=== PATIENT | female | born 1940 | race African-American/Black ===

== ENCOUNTER 2017-09-05 11:30 | Emergency (ER) | payer MEDICARE, BC ==
[2017-09-05 12:18] LABS: ABSOLUTE LYMPHOCYTES (AUTO) 4.3 10^3/uL (0.5-4.7); ABSOLUTE MONOCYTES (AUTO) 0.5 10^3/uL (0.1-1.4); BASOPHILS % (AUTO) 0.2 % (0-2); EOSINOPHILS % (AUTO) 0.3 % (0-6); HEMATOCRIT 40.5 % (36.0-47.0); HEMOGLOBIN 12.9 g/dL (12.0-15.5); LYMPHOCYTES % (AUTO) 33.5 % (13-45); MEAN CORPUSCULAR HEMOGLOBIN 28.1 pg (27.0-33.4); MEAN CORPUSCULAR HGB CONC 31.9 g/dL (32.0-36.0); MEAN CORPUSCULAR VOLUME 88 fl (80-97); MONOCYTES % (AUTO) 3.7 % (3-13); PLATELET COUNT 295 10^3/uL (150-450); RED CELL DISTRIBUTION WIDTH 14.8 % (11.5-14.0); SEGMENTED NEUTROPHILS % (AUTO) 62.3 % (42-78); TOTAL CELLS COUNTED % (AUTO) 100 %; WHITE BLOOD COUNT 12.8 10^3/uL (4.0-10.5)
--- NOTE | 2017-09-05 12:20 | ER Document Report ---
ED Syncope and Near Syncope - General Chief Complaint: Syncope Stated Complaint: WEAKNESS Time Seen by Provider: 09/05/17 11:37 Mode of Arrival: Stretcher Information source: Patient, Relative TRAVEL OUTSIDE OF THE [place] IN LAST 30 DAYS: No - HPI Patient complains to provider of: Fainting Episode witnessed (by whom): No Symptoms prior to episode: None Position/Activity at time of episode: Sitting Quality of pain: No pain Context: Lost consciousness Injury location: None Current symptoms: Weakness Similar symptoms previously: No Recently seen / treated by doctor: No Notes: Patient is a 77-year-old female who presents to the emergency room today after syncopal episode while she was having a bowel movement on the commode, patient reports no symptoms prior to the episode, states she was having a loose bowel movement and did not have to bear down at the time, she states she passed out for just a few seconds and then came to without sustaining any injury, following the syncopal episode she complains of weakness, denies headache, no vision changes, no nausea or vomiting, no fever chills, no recent illness or injury, denies seeing any blood in her stools, no chest pain or shortness of breath, no history of similar symptoms previously - Related Data Allergies/Adverse Reactions: No Known Allergies Allergy (Verified 03/14/13 08:49) Past Medical History - General Information source: Patient - Social History Smoking Status: Never Smoker Chew tobacco use (# tins/day): No Frequency of alcohol use: None Drug Abuse: None Family History: Reviewed & Not Pertinent Patient has suicidal ideation: No Patient has homicidal ideation: No - Past Medical History Cardiac Medical History: Reports: Hx Coronary Artery Disease, Hx Hypercholesterolemia, Hx Hypertension Denies: Hx Heart Attack Pulmonary Medical History: Denies: Hx Asthma, Hx Bronchitis, Hx COPD, Hx Pneumonia Neurological Medical History: Denies: Hx Cerebrovascular Accident, Hx Seizures Renal/ Medical History: Denies: Hx Peritoneal Dialysis GI Medical History: Reports: Hx Gastroesophageal Reflux Disease Musculoskeltal Medical History: Reports Hx Arthritis Past Surgical History: Reports: Hx Cholecystectomy, Hx Hysterectomy. Denies: Hx Pacemaker - Immunizations Hx Diphtheria, Pertussis, Tetanus Vaccination: No Review of Systems - Review of Systems Constitutional: Weakness EENT: No symptoms reported Cardiovascular: Syncope Respiratory: No symptoms reported Gastrointestinal: No symptoms reported Genitourinary: No symptoms reported Female Genitourinary: No symptoms reported Musculoskeletal: No symptoms reported Skin: No symptoms reported Hematologic/Lymphatic: No symptoms reported Neurological/Psychological: No symptoms reported -: Yes All other systems reviewed and negative Physical Exam - Vital signs Vitals: Temp 97.4 F 09/05/17 11:40 Interpretation: Normal - General General appearance: Appears well, Alert - HEENT Head: Normocephalic, Atraumatic Eyes: Normal Pupils: PERRL - Respiratory Respiratory status: No respiratory distress Chest status: Nontender Breath sounds: Normal Chest palpation: Normal - Cardiovascular Rhythm: Regular Heart sounds: Normal auscultation Murmur: No - Abdominal Inspection: Normal Distension: No distension Bowel sounds: Normal Tenderness: Nontender Organomegaly: No organomegaly - Back Back: Normal, Nontender - Extremities General upper extremity: Normal inspection, Nontender, Normal color, Normal ROM , Normal temperature General lower extremity: Normal inspection, Nontender, Normal color, Normal ROM , Normal temperature, Normal weight bearing. No: Olamide's sign - Neurological Neuro grossly intact: Yes Cognition: Normal Orientation: AAOx4 [place] Coma Scale Eye Opening: Spontaneous [place] Coma Scale Verbal: Oriented [place] Coma Scale Motor: Obeys Commands [place] Coma Scale Total: 15 Speech: Normal Motor strength normal: LUE, RUE, LLE, RLE Sensory: Normal - Psychological Associated symptoms: Normal affect, Normal mood - Skin Skin Temperature: Warm Skin Moisture: Dry Skin Color: Pale Course - Re-evaluation Re-evalutation: 09/05/17 15:48 Patient reports feeling much better, was able to ambulate without difficulty or return of symptoms, lab findings were discussed at bedside which are unremarkable except for mild leukocytosis and evidence of a urinary tract infection, patient will be started on antibiotics for this, advised to follow- up with her primary care provider in the next 2-3 days or return if symptoms worsen, symptoms likely vasovagal syncope as patient was having a bowel movement at time of her syncopal episode, patient and family members at bedside acknowledge understanding and agreement with this plan - Vital Signs Vital signs: Temp Pulse Resp BP Pulse Ox 97.4 F 81 16 125/67 98 09/05/17 11:40 09/05/17 12:47 09/05/17 13:01 09/05/17 13:01 09/05/17 13:01 - Laboratory Result Diagrams: 09/05/17 11:07 04/10/18 12:55 Laboratory results interpreted by me: 09/05/17 09/05/17 09/05/17 11:07 12:40 12:55 WBC 12.8 H MCHC 31.9 L RDW 14.8 H Carbon Dioxide 31 H BUN 22 H Glucose 126 H Urine Protein 30 H Urine Blood SMALL H Ur Leukocyte Esterase SMALL H Urine Ascorbic Acid 40 H - EKG Interpretation by Me EKG shows normal: Sinus rhythm Rate: Normal Rhythm: NSR Discharge - Discharge Clinical Impression: Syncope Qualifiers: Syncope type: vasovagal syncope Qualified Code(s): R55 - Syncope and collapse Urinary tract infection Qualifiers: Urinary tract infection type: site unspecified Hematuria presence: without hematuria Qualified Code(s): N39.0 - Urinary tract infection, site not specified Condition: Stable Disposition: HOME, SELF-CARE Instructions: Urinary Tract Infection ([facility]), Nitrofurantoin ([facility]), Syncopal Episode ([facility]) Additional Instructions: Follow up with your primary care provider in one to 2 days. Return to the emergency room immediately if symptoms worsen or any additional concerns. Prescriptions: Nitrofurantoin/Nitrofuran Mac [Macrobid 100 mg Capsule] 100 mg PO BID #20 capsule Referrals: STEFFANY OKEEFE MD [Primary Care Provider] - Follow up as needed
--- NOTE | 2017-09-05 13:03 | EKG REPORT ---
SEVERITY:- OTHERWISE NORMAL ECG - SINUS RHYTHM BORDERLINE LEFT AXIS DEVIATION : Confirmed by: Bola Padilla MD 05-Sep-2017 13:02:35
--- NOTE | 2017-09-05 13:03 | EKG REPORT ---
SEVERITY:- BORDERLINE ECG - SINUS ARRHYTHMIA, RATE 54-81 BORDERLINE LEFT AXIS DEVIATION CONSIDER OLD ANTEROSEPTAL ID : Confirmed by: Bola Padilla MD 05-Sep-2017 13:02:18
[2017-09-05 13:52] LABS: ALANINE AMINOTRANSFERASE 27 U/L (9-52); ALBUMIN 4.2 g/dL (3.5-5.0); ALKALINE PHOSPHATASE 79 U/L (38-126); ANION GAP 8 (5-19); ASPARTATE AMINO TRANSFERASE 33 U/L (14-36); BILIRUBIN,DIRECT 0.3 mg/dL (0.0-0.4); BILIRUBIN,TOTAL 0.3 mg/dL (0.2-1.3); BLOOD UREA NITROGEN 22 mg/dL (7-20); CALCIUM 9.6 mg/dL (8.4-10.2); CARBON DIOXIDE 31 mmol/L (22-30); CHLORIDE 102 mmol/L (98-107); CREATINE KINASE 59 U/L (30-135); GLUCOSE 126 mg/dL (75-110); POTASSIUM 4.1 mmol/L (3.6-5.0); SODIUM 141.4 mmol/L (137-145); TOTAL PROTEIN 7.6 g/dL (6.3-8.2)
[2017-09-05 14:00] LABS: APPEARANCE,URINE CLOUDY; BILIRUBIN,URINE NEGATIVE (NEGATIVE); GLUCOSE, URINE NEGATIVE (NEGATIVE); KETONES,URINE NEGATIVE (NEGATIVE); LEUKOCYTE ESTERASE,URINE SMALL (NEGATIVE); NITRITE,URINE NEGATIVE (NEGATIVE); PROTEIN,URINE 30 mg/dL (NEGATIVE); URINE SPECIFIC GRAVITY 1.028; UROBILINOGEN,URINE NEGATIVE mg/dL (<2.0)
[2017-09-05 14:01] LABS: COLOR,URINE YELLOW
[2017-09-05 14:20] LABS: CREATINE KINASE MB 0.56 ng/mL (<4.55)
[2017-09-05 14:22] LABS: TROPONIN I < 0.012 ng/mL
[2017-09-05 16:12] VITALS: BP 117/69
== END 2017-09-05 16:12 | disposition home or self-care (01) ==
LOC: ER 11:30
DX: R55 Syncope and collapse (principal); N39.0 Urinary tract infection, site not specified; R53.1 Weakness; I25.10 Atherosclerotic heart disease of native coronary artery without angina pectoris; E78.00 Pure hypercholesterolemia, unspecified; I10 Essential (primary) hypertension; Z90.49 Acquired absence of other specified parts of digestive tract; Z90.710 Acquired absence of both cervix and uterus
CPT/HCPCS: 36415; 80053; 81001; 82550; 82553; 84484; 85025; 93005; 93010; 99284

== ENCOUNTER 2017-09-05 20:58 | Inpatient (IN) | payer MEDICARE, BC ==
[2017-09-05] MEDS ORDERED: ONDANSETRON HCL INJ/PF 4 MG/2 ML SDV IV ONE (21:20)
[2017-09-05] MEDS ORDERED: NORMAL SALINE 1000 ML 1,000 ML IV ONE (21:20)
--- NOTE | 2017-09-05 21:24 | ER Document Report ---
ED Syncope and Near Syncope - General Chief Complaint: Syncope Stated Complaint: DIARRHEA Time Seen by Provider: 09/05/17 21:20 Notes: History of present illness-77 years old pleasant female, had a syncopal episode prior to coming. The second 1 she hit her head on the sink and sustained a laceration over the left forehead. She did not completely go down she went down on her knee. The one before that was on the bed. She was seen in the ER early this morning for nausea vomiting and diarrhea. She states after she went back she has multiple episodes of loose stools. She is on hypertensive medication which she took this morning. Currently has no dizziness headache. Denies any pain over the neck denies any pain over the thoracolumbar region. Denies any chest pain shortness of breath. Denies any history of palpitation. Denies any abdominal pain. REVIEW OF SYSTEMS: CONSTITUTIONAL : Denies fever, chills, or sweats. Denies recent illness. EENT: Denies eye, ear, throat, or mouth pain or symptoms. Denies nasal or sinus congestion or discharge. Denies throat, tongue, or mouth swelling or difficulty swallowing. CARDIOVASCULAR: Denies chest pain. Denies palpitations or racing or irregular heart beat. Denies ankle edema. RESPIRATORY: Denies cough, cold, or chest congestion. Denies shortness of breath, difficulty breathing, or wheezing. GASTROINTESTINAL: Denies abdominal pain or distention. Denies nausea, vomiting , or diarrhea. Denies blood in vomitus, stools, or per rectum. Denies black, tarry stools. Denies constipation. GENITOURINARY: Denies difficulty urinating, painful urination, burning, frequency, blood in urine, or discharge. FEMALE GENITOURINARY: Denies vaginal bleeding, heavy or abnormal periods, irregular periods. Denies vaginal discharge or odor. MUSCULOSKELETAL: Denies back or neck pain or stiffness. Denies joint pain or swelling. SKIN: Denies rash, lesions or sores. HEMATOLOGIC : Denies easy bruising or bleeding. LYMPHATIC: Denies swollen, enlarged glands. NEUROLOGICAL: Denies confusion or altered mental status. Denies passing out or loss of consciousness. Denies dizziness or lightheadedness. Denies headache. Denies weakness or paralysis or loss of use of either side. Denies problems with gait or speech. Denies sensory loss, numbness, or tingling. Denies seizures. PSYCHIATRIC: Denies anxiety or stress. Denies depression, suicidal ideation, or homicidal ideation. ALL OTHER SYSTEMS REVIEWED AND NEGATIVE. PHYSICAL EXAMINATION: GENERAL: Well-appearing, well-nourished and in no acute distress. HEAD: Atraumatic, normocephalic. 3 cm linear left forehead laceration noted EYES: Pupils equal round and reactive to light, extraocular movements intact, conjunctiva are normal. ENT: Nares patent, oropharynx clear without exudates. Moist mucous membranes. NECK: Normal range of motion, supple without lymphadenopathy. Supple no cervical spinal process tenderness noted. Able to flex extend abduct abduct within normal range. LUNGS: Breath sounds clear to auscultation bilaterally and equal. No wheezes rales or rhonchi. HEART: Regular rate and rhythm without murmurs ABDOMEN: Soft, nontender, nondistended abdomen. No guarding, no rebound. No masses appreciated. Female : deferred Musculoskeletal: Normal range of motion, no pitting or edema. No cyanosis. NEUROLOGICAL: Cranial nerves grossly intact. Normal speech, normal gait. Normal sensory, motor exams PSYCH: Normal mood, normal affect. SKIN: Warm, Dry, normal turgor, no rashes or lesions noted. Examination of the thoracolumbar spine: No tenderness noted over the spinal processes or paraspinal muscles. Dictation was performed using [employer] voice recognition software TRAVEL OUTSIDE OF THE [place] IN LAST 30 DAYS: No - HPI Patient complains to provider of: Fainting Episode witnessed (by whom): Yes Symptoms prior to episode: Dizziness. No: None, Abdominal pain, Back pain, Chest pain, Chills, Diarrhea, Fever, Headache, Hyperventilation, Lightheaded, Nausea/vomiting, Palpitations, Racing heart, Short of breath, Sweaty, Visual disturbance, Other Position/Activity at time of episode: Standing Quality of pain: denies: No pain, Achy, Burning, Cramping, Dull, Fullness, Pressure, Sharp, Stabbing, Throbbing, Other Context: denies: Almost passed out, Became unresponsive, Breathing shallow/ stopped, Collapsed, Confused after event, [place] faint, Incontinent of stool, Incontinent of urine, Lost consciousness, Lost pulse, Low blood sugar, , Recent immobilization, Recent seizures, Recent travel, Seizure activity observed, Other Seizure activity observed: Generalized Injury location: No: None, Abdomen, Back, Chest, Face, Head, Mouth, Neck, Tongue , LUE, LLE, RUE, RLE Current symptoms: denies: None/feels back to normal, Abdominal pain, Arm pain, Back pain, Breathing difficulty, Chest pain, Chills, Diarrhea, Dizziness, Fever , Headache, Lightheaded, Nausea, Neck pain, Shoulder pain, Short of breath, Sweaty, Vomiting, Weakness, Other - Related Data Allergies/Adverse Reactions: No Known Allergies Allergy (Verified 03/14/13 08:49) Past Medical History - Social History Smoking Status: Never Smoker Chew tobacco use (# tins/day): No Smoking Education Provided: No Frequency of alcohol use: None Drug Abuse: None Lives with: Family Family History: Reviewed & Not Pertinent - Past Medical History Cardiac Medical History: Reports: Hx Coronary Artery Disease, Hx Hypercholesterolemia, Hx Hypertension Denies: Hx Heart Attack Pulmonary Medical History: Denies: Hx Asthma, Hx Bronchitis, Hx COPD, Hx Pneumonia Neurological Medical History: Denies: Hx Cerebrovascular Accident, Hx Seizures Renal/ Medical History: Denies: Hx Peritoneal Dialysis GI Medical History: Reports: Hx Gastroesophageal Reflux Disease Musculoskeltal Medical History: Reports Hx Arthritis Past Surgical History: Reports: Hx Cholecystectomy, Hx Hysterectomy. Denies: Hx Pacemaker - Immunizations Hx Diphtheria, Pertussis, Tetanus Vaccination: No Review of Systems - Review of Systems Notes: As per history of complain Constitutional: denies: No symptoms reported, See HPI, Chills, Diaphoresis, Fever, Malaise, Weakness, Other, Weight gain, Weight loss, Recent illness EENT: denies: No symptoms reported, See HPI, Eye pain, Eye discharge, Blurred vision, Tearing, Double vision, Ear pain, Ear discharge, Nose pain, Nose congestion, Nose discharge, Sinus pressure, Sinus discharge, Throat pain, Difficulty swallowing, Throat swelling, Mouth pain, Mouth swelling, Dental problem, Vertigo, Other Cardiovascular: denies: No symptoms reported, See HPI, Chest pain, Palpitations , Heart racing, Orthopnea, Dyspnea, Syncope, Dizziness, Lightheaded, Edema, Other, Paroxysmal Nocturnal Dysp Respiratory: denies: No symptoms reported, See HPI, Cough, Hurts to breathe, Hemoptysis, Short of breath, Sputum, Stridor, Wheezing, Other Gastrointestinal: Diarrhea Female Genitourinary: denies: No symptoms reported, See HPI, Last menstrual period, , Post menopausal, Heavy/abnormal periods, Irregular period, Vaginal bleeding, Vaginal discharge, Vaginal odor, Painful intercourse, Other Musculoskeletal: denies: No symptoms reported, See HPI, Back pain, Gout, Joint pain, Joint swelling, Muscle pain, Muscle stiffness, Neck pain, Deformity, Leg swelling, Ankle swelling, Other Physical Exam - Vital signs Vitals: Pulse Ox 98 09/05/17 20:59 Course - Re-evaluation Re-evalutation: 09/06/17 00:52 Given IV fluid discussed with Dr. Guerrero, currently being admitted - Vital Signs Vital signs: Temp Pulse Resp BP Pulse Ox 98.0 F 103 H 18 131/67 H 97 09/05/17 21:02 09/05/17 21:02 09/05/17 21:02 09/05/17 21:02 09/05/17 21:02 - Laboratory Result Diagrams: 09/05/17 21:35 09/05/17 21:35 Laboratory results interpreted by me: 09/05/17 09/05/17 21:35 21:35 WBC 11.4 H RDW 14.6 H Seg Neuts % (Manual) 92 H Lymphocytes % (Manual) 4 L Abs Neuts (Manual) 10.5 H BUN 29 H Est GFR (Non-Af Amer) 57 L Glucose 154 H - Diagnostic Test Radiology reviewed: Reports reviewed - CT of the head reported by radiologist as unremarkable Procedures - Laceration/Wound Repair Left Face Time completed: 11:00 Wound length (cm): 3 Wound's Depth, Shape: Superficial, Linear Laceration pre-procedure: Betadine prep applied Wound explored: No foreign body removed Wound Repaired With: Dermabond Post-procedure NV exam normal: Yes Complications: No Discharge - Discharge Clinical Impression: Dehydration, Syncope and collapse Forehead laceration Qualifiers: Encounter type: initial encounter Qualified Code(s): S01.81XA - Laceration without foreign body of other part of head, initial encounter Condition: Fair Disposition: ADMITTED OBSERVATION Admitting Provider: Cesar Unit Admitted: Telemetry
[2017-09-05 21:49] LABS: HEMATOCRIT 38.9 % (36.0-47.0); HEMOGLOBIN 12.5 g/dL (12.0-15.5); MEAN CORPUSCULAR HEMOGLOBIN 28.2 pg (27.0-33.4); MEAN CORPUSCULAR HGB CONC 32.2 g/dL (32.0-36.0); MEAN CORPUSCULAR VOLUME 88 fl (80-97); PLATELET COUNT 267 10^3/uL (150-450); RED BLOOD COUNT 4.44 10^6/uL (3.72-5.28); RED CELL DISTRIBUTION WIDTH 14.6 % (11.5-14.0); WHITE BLOOD COUNT 11.4 10^3/uL (4.0-10.5)
[2017-09-05 22:09] LABS: ABSOLUTE LYMPHOCYTES# (MANUAL) 0.5 10^3/uL (0.5-4.7); ABSOLUTE MONOCYTES # (MANUAL) 0.5 10^3/uL (0.1-1.4); ABSOLUTE NEUTROPHILS# (MANUAL) 10.5 10^3/uL (1.7-8.2); BASOPHILS % (MANUAL) 0 % (0-2); EOSINOPHILS % (MANUAL) 0 % (0-6); LYMPHOCYTES % (MANUAL) 4 % (13-45); MONOCYTES % (MANUAL) 4 % (3-13); SEGMENTED NEUTROPHILS % (MAN) 92 % (42-78); TOTAL CELLS COUNTED 100
[2017-09-05 22:10] LABS: ALANINE AMINOTRANSFERASE 44 U/L (9-52); ALBUMIN 4.3 g/dL (3.5-5.0); ALKALINE PHOSPHATASE 79 U/L (38-126); ANION GAP 12 (5-19); ANISOCYTOSIS SLIGHT; ASPARTATE AMINO TRANSFERASE 34 U/L (14-36); BILIRUBIN,DIRECT 0.1 mg/dL (0.0-0.4); BILIRUBIN,TOTAL 0.4 mg/dL (0.2-1.3); BLOOD UREA NITROGEN 29 mg/dL (7-20); CALCIUM 9.9 mg/dL (8.4-10.2); CARBON DIOXIDE 26 mmol/L (22-30); CHLORIDE 103 mmol/L (98-107); GLUCOSE 154 mg/dL (75-110); PLATELET COMMENT ADEQUATE; TOXIC GRANULATION SLIGHT
--- NOTE | 2017-09-05 22:30 | RADIOLOGY REPORT (SQ) ---
EXAM DESCRIPTION: CT HEAD WITHOUT COMPLETED DATE/TIME: 09/05/2017 10:20 pm REASON FOR STUDY: Head injury COMPARISON: 05/26/2015. TECHNIQUE: Axial images acquired through the brain without intravenous contrast. Images reviewed wi th bone, brain and subdural windows. Additional sagittal and coronal reconstructions were generated. Images stored on PACS. All CT scanners at this facility use dose modulation, iterative reconstruction, and/or weight based d osing when appropriate to reduce radiation dose to as low as reasonably achievable (ALARA). [facility]: Dose Right [facility]: CareDose [facility]: Dose Right [facility]: Teradose 4D [facility]: Smart Opara RADIATION DOSE: CT Rad equipment meets quality standard of care and radiation dose reduction techniq ues were employed. CTDIvol: 53.2 mGy. DLP: 1097 mGy-cm. mGy. LIMITATIONS: None. FINDINGS: VENTRICLES: Normal size and contour. CEREBRUM: No masses. No hemorrhage. No midline shift. No evidence for acute infarction. Normal gra y/white matter differentiation. No areas of low density in the white matter. CEREBELLUM: No masses. No hemorrhage. No alteration of density. No evidence for acute infarction. EXTRAAXIAL SPACES: No fluid collections. No masses. ORBITS AND GLOBE: No intra- or extraconal masses. Normal contour of globe without masses. CALVARIUM: No fracture. PARANASAL SINUSES: No fluid or mucosal thickening. SOFT TISSUES: No mass or hematoma. OTHER: No other significant finding. IMPRESSION: NORMAL BRAIN CT WITHOUT CONTRAST. EVIDENCE OF ACUTE STROKE: NO. COMMENT: Quality ID # [id number]: Final reports with documentation of one or more dose reduction techniques (e.g., Automated exposure control, adjustment of the mA and/or kV according to patient size, use of iterative reconstruction technique) TECHNICAL DOCUMENTATION: JOB ID: [id number] [employer]- All Rights Reserved Reading location - IP/workstation name: [email or web address]
[2017-09-06] MEDS: NORMAL SALINE 1000 ML 1,000 ML IV PRN ×2 (00:33→13:59)
[2017-09-06 08:12] LABS: CREATINE KINASE MB 0.83 ng/mL (<4.55)
[2017-09-06 08:16] LABS: TROPONIN I < 0.012 ng/mL
[2017-09-06 14:37] LABS: CREATINE KINASE MB 1.99 ng/mL (<4.55)
[2017-09-06 14:43] LABS: TROPONIN I < 0.012 ng/mL
--- NOTE | 2017-09-06 18:06 | PDOC H&P ---
History of Present Illness Admission Date/PCP: 09/06/17 01:06 STEFFANY OKEEFE MD History of Present Illness: KEVEN CASTELAN is a 77 year old female,She has a history of hypertension, she had episode of profuse diarrhea with vomiting there was associated hypotension, she had episode of loss of consciousness, she came to the emergency room twice , initially she was seen for the acute diarrhea and vomiting, she returned again to the emergency room for evaluation of loss of consoiuoness and laceration of the forehead.The feces is negative for Clostridium difficile toxin, the last time she was in the emergency room which was <24 hours ago she was diagnosed with urinary tract infection. Past Medical History Cardiac Medical History: Reports: Hyperlipidema GI Medical History: Reports: Gastroesophageal Reflux Disease Musculoskeltal Medical History: Reports: Arthritis Psychiatric Medical History: Reports: Depression Hematology: Denies: Anemia Past Surgical History Past Surgical History: Reports: Cholecystectomy, Hysterectomy Denies: Pacemaker Social History Lives with: Family Smoking Status: Never Smoker Frequency of Alcohol Use: None Hx Recreational Drug Use: No Drugs: None Hx Prescription Drug Abuse: No Family History Family History: Reviewed & Not Pertinent Parental Family History Reviewed: Yes Children Family History Reviewed: Yes Sibling(s) Family History Reviewed.: Yes Medication/Allergy Home Medications: Aspirin [Ecotrin 81 mg EC Tablet] 81 mg PO DAILY 09/06/17 Calcium Carb/D3/Magnesium/Zinc [Rei Mag Zinc + D3 Tablet] 1 tab PO DAILY Cyanocobalamin (Vitamin B-12) [B-12] 500 mcg PO DAILY 09/06/17 Fish Oil/Dha/Epa [Fish Oil 1,200 mg Fish Oil] 1,200 mg PO DAILY 09/06/17 Multivit-Min/Iron/Folic/Lutein [Centrum Silver Women Tablet] 1 each PO DAILY 04/15 Omeprazole 40 mg PO DAILY 09/06/17 Valsartan/Hydrochlorothiazide [Diovan Hct 160-25 mg Tablet] 1 tab PO DAILY 09/06 Allergies/Adverse Reactions: No Known Allergies Allergy (Verified 03/14/13 08:49) Review of Systems Constitutional: ABSENT: chills, fever(s), headache(s), weight gain, weight loss Eyes: ABSENT: visual disturbances Ears: ABSENT: hearing changes Cardiovascular: ABSENT: chest pain, dyspnea on exertion, edema, orthropnea, palpitations Respiratory: ABSENT: cough, hemoptysis Gastrointestinal: PRESENT: nausea, vomiting Genitourinary: ABSENT: dysuria, hematuria Musculoskeletal: ABSENT: joint swelling Integumentary: ABSENT: rash, wounds Neurological: PRESENT: dizziness. ABSENT: abnormal gait, abnormal speech, confusion, focal weakness Psychiatric: ABSENT: anxiety, depression, homidical ideation, suicidal ideation Endocrine: ABSENT: cold intolerance, heat intolerance, menstrual abnormalities, polydipsia, polyuria Hematologic/Lymphatic: ABSENT: easy bleeding, easy bruising, lymphadenopathy Physical Exam Vital Signs: Temp Pulse Resp BP Pulse Ox 99.1 F 82 12 118/67 100 09/06/17 15:52 09/06/17 15:52 09/06/17 15:52 09/06/17 15:52 09/06/17 15:52 Intake & Output 09/05/17 09/06/17 09/07/17 06:59 06:59 06:59 Intake Total 80 355 Output Total 0 Balance 80 355 General appearance: PRESENT: no acute distress, well-developed, well-nourished Head exam: PRESENT: atraumatic, normocephalic Eye exam: PRESENT: conjunctiva pink, EOMI, PERRLA Ear exam: PRESENT: normal external ear exam Mouth exam: PRESENT: dry mucosa Neck exam: PRESENT: full ROM Respiratory exam: PRESENT: clear to auscultation arcelia Cardiovascular exam: PRESENT: RRR, +S1, +S2 Pulses: PRESENT: normal dorsalis pedis pul, +2 pedal pulses bilateral Vascular exam: PRESENT: normal capillary refill GI/Abdominal exam: PRESENT: normal bowel sounds, soft Rectal exam: PRESENT: deferred Neurological exam: PRESENT: alert, awake, oriented to person, oriented to place , oriented to time, oriented to situation, CN II-XII grossly intact Psychiatric exam: PRESENT: appropriate affect, normal mood Skin exam: PRESENT: dry Results Laboratory Results: 09/06/17 09/06/17 09/06/17 07:36 07:36 13:55 Creatine Kinase 107 CK-MB (CK-2) 0.83 1.99 Troponin I < 0.012 < 0.012 09/06/17 13:55 Creatine Kinase 173 H CK-MB (CK-2) Troponin I Impressions: Head CT 09/05/17 21:21 IMPRESSION: NORMAL BRAIN CT WITHOUT CONTRAST. EVIDENCE OF ACUTE STROKE: NO. Assessment & Plan - Diagnosis (1) Acute gastroenteritis Is this a current diagnosis for this admission?: Yes Plan: There is probably viral gastroenteritis, stool negative for C. difficile, continue hydration (2) Syncope and collapse Is this a current diagnosis for this admission?: Yes Plan: The syncope is most likely from volume loss
[2017-09-06 19:27] LABS: CREATINE KINASE MB 3.29 ng/mL (<4.55)
[2017-09-06 19:32] LABS: TROPONIN I < 0.012 ng/mL
[2017-09-07] MEDS: LANSOPRAZOLE 30 MG TAB.RAP.DR PO SCH (05:09)
[2017-09-07] MEDS: NORMAL SALINE 1000 ML 1,000 ML IV PRN (05:10)
[2017-09-07] MEDS: CALCIUM CARBONATE 250 MG/VITAMIN D3 125 UNIT TABLET PO SCH (09:43)
[2017-09-07] MEDS: VALSARTAN 160 MG TABLET PO SCH (09:43)
[2017-09-07] MEDS: CYANOCOBALAMIN (VITAMIN B-12) 1,000 MCG TABLET PO SCH (09:44)
[2017-09-07] MEDS: HYDROCHLOROTHIAZIDE 25 MG TABLET PO SCH (09:44)
[2017-09-07] MEDS: MULTIVITAMIN TABLET PO SCH (09:44)
[2017-09-07] MEDS: ASPIRIN 81 MG TABLET, ENT COATED PO SCH (09:45)
[2017-09-07] MEDS: OMEGA-3 ACID ETHYL ESTERS 1 GM CAPSULE PO SCH (09:45)
[2017-09-07] MEDS ORDERED: CALCIUM CARB PO SCH (10:00)
[2017-09-07] MEDS ORDERED: (PENDING PHARMACY ID) (Fish Oil/Dha/Epa [Fish Oil 1,200 Mg Fish Oil] 1,200 MG) PO SCH (10:00)
[2017-09-07] MEDS ORDERED: (PENDING PHARMACY ID) (Cyanocobalamin (Vitamin B-12) [B-12] 500 MCG) PO SCH (10:00)
[2017-09-07] MEDS ORDERED: (PENDING PHARMACY ID) (Multivit-Min/Iron/Folic/Lutein [Centrum Silver Women Tablet] 1 EACH PO SCH (10:00)
[2017-09-07] MEDS ORDERED: ZINC PO SCH (10:00)
[2017-09-07] MEDS ORDERED: (PENDING PHARMACY ID) (Valsartan/Hydrochlorothiazide [Diovan Hct 160-25 Mg Tablet] 1 TAB) PO SCH (10:00)
[2017-09-07] MEDS ORDERED: D3 PO SCH (10:00)
[2017-09-07] MEDS ORDERED: MAGNESIUM PO SCH (10:00)
[2017-09-07] MEDS ORDERED: RIFAXIMIN 550 MG TABLET PO ONE (20:00)
--- NOTE | 2017-09-07 20:26 | PDOC PROGRESS REPORT ---
Subjective Progress Note for:: 09/07/17 Subjective:: Patient was admitted for the management of acute gastroenteritis, she has ongoing diarrhea, the nurses stated that last night she had episode of transient loss of consciousness when she was transferring from the bed to the chair, she was admitted for observation but she presently continued to require IV fluid hydration Reason For Visit: DEHYDRATION Physical Exam Vital Signs: Temp Pulse Resp BP Pulse Ox 98.4 F 84 16 109/52 L 96 09/07/17 15:29 09/07/17 19:00 09/07/17 15:29 09/07/17 15:29 09/07/17 15:29 Intake & Output 09/06/17 09/07/17 09/08/17 06:59 06:59 06:59 Intake Total 80 2319 1006 Output Total 0 Balance 80 2319 1006 Weight 69.4 kg General appearance: PRESENT: no acute distress Eye exam: PRESENT: PERRLA Respiratory exam: PRESENT: clear to auscultation arcelia Cardiovascular exam: PRESENT: +S1, +S2 GI/Abdominal exam: PRESENT: soft Neurological exam: PRESENT: alert Results Laboratory Results: 09/06/17 09/06/17 09/06/17 07:36 07:36 13:55 Creatine Kinase 107 CK-MB (CK-2) 0.83 1.99 Troponin I < 0.012 < 0.012 09/06/17 09/06/17 09/06/17 13:55 18:44 18:44 Creatine Kinase 173 H 299 H CK-MB (CK-2) 3.29 Troponin I < 0.012 Impressions: Head CT 09/05/17 21:21 IMPRESSION: NORMAL BRAIN CT WITHOUT CONTRAST. EVIDENCE OF ACUTE STROKE: NO. Assessment & Plan - Diagnosis (1) Acute gastroenteritis Is this a current diagnosis for this admission?: Yes Plan: Continue IV fluid therap,yStart treatment with xifaximin (2) Syncope and collapse Is this a current diagnosis for this admission?: Yes
[2017-09-08] MEDS: LANSOPRAZOLE 30 MG TAB.RAP.DR PO SCH (05:10)
[2017-09-08] MEDS: CALCIUM CARBONATE 250 MG/VITAMIN D3 125 UNIT TABLET PO SCH (10:19)
[2017-09-08] MEDS: ASPIRIN 81 MG TABLET, ENT COATED PO SCH (10:19)
[2017-09-08] MEDS: MULTIVITAMIN TABLET PO SCH (10:19)
[2017-09-08] MEDS: OMEGA-3 ACID ETHYL ESTERS 1 GM CAPSULE PO SCH (10:20)
[2017-09-08] MEDS: VALSARTAN 160 MG TABLET PO SCH (10:20)
[2017-09-08] MEDS: CYANOCOBALAMIN (VITAMIN B-12) 1,000 MCG TABLET PO SCH (10:20)
[2017-09-08] MEDS: RIFAXIMIN 550 MG TABLET PO SCH ×2 (10:20→17:51)
[2017-09-08] MEDS: HYDROCHLOROTHIAZIDE 25 MG TABLET PO SCH (10:20)
[2017-09-08] MEDS: NORMAL SALINE 1000 ML 1,000 ML IV PRN (16:59)
--- NOTE | 2017-09-08 21:38 | PDOC PROGRESS REPORT ---
Subjective Progress Note for:: 09/08/17 Subjective:: Patient was admitted for the management of diarrhea, still profuse, she was started on rifaxmin antibiotic yesterday Reason For Visit: DEHYDRATION, SYNCOPE Physical Exam Vital Signs: Temp Pulse Resp BP Pulse Ox 99.1 F 86 20 128/55 H 97 09/08/17 19:50 09/08/17 20:50 09/08/17 19:50 09/08/17 19:50 09/08/17 19:50 Intake & Output 09/07/17 09/08/17 09/09/17 06:59 06:59 06:59 Intake Total 2318 2001 136 Output Total 0 1 Balance 2318 2001 136 Weight 69.4 kg General appearance: PRESENT: no acute distress Eye exam: PRESENT: PERRLA Respiratory exam: PRESENT: clear to auscultation arcelia Cardiovascular exam: PRESENT: +S1, +S2 GI/Abdominal exam: PRESENT: soft Neurological exam: PRESENT: alert Results Laboratory Results: 09/06/17 09/06/17 09/06/17 07:36 07:36 13:55 Creatine Kinase 107 CK-MB (CK-2) 0.83 1.99 Troponin I < 0.012 < 0.012 09/06/17 09/06/17 09/06/17 13:55 18:44 18:44 Creatine Kinase 173 H 299 H CK-MB (CK-2) 3.29 Troponin I < 0.012 Impressions: Head CT 09/05/17 21:21 IMPRESSION: NORMAL BRAIN CT WITHOUT CONTRAST. EVIDENCE OF ACUTE STROKE: NO. Assessment & Plan - Diagnosis (1) Acute gastroenteritis Is this a current diagnosis for this admission?: Yes (2) Syncope and collapse Is this a current diagnosis for this admission?: Yes
[2017-09-09] MEDS: LANSOPRAZOLE 30 MG TAB.RAP.DR PO SCH (05:22)
[2017-09-09] MEDS: NORMAL SALINE 1000 ML 1,000 ML IV PRN (05:22)
[2017-09-09] MEDS: ASPIRIN 81 MG TABLET, ENT COATED PO SCH (09:23)
[2017-09-09] MEDS: OMEGA-3 ACID ETHYL ESTERS 1 GM CAPSULE PO SCH (09:24)
[2017-09-09] MEDS: RIFAXIMIN 550 MG TABLET PO SCH ×2 (09:24→17:01)
[2017-09-09] MEDS: CALCIUM CARBONATE 250 MG/VITAMIN D3 125 UNIT TABLET PO SCH (09:24)
[2017-09-09] MEDS: CYANOCOBALAMIN (VITAMIN B-12) 1,000 MCG TABLET PO SCH (09:24)
[2017-09-09] MEDS: HYDROCHLOROTHIAZIDE 25 MG TABLET PO SCH (09:24)
[2017-09-09] MEDS: VALSARTAN 160 MG TABLET PO SCH (09:25)
[2017-09-09] MEDS: MULTIVITAMIN TABLET PO SCH (09:25)
[2017-09-09 14:08] LABS: ABSOLUTE LYMPHOCYTES (AUTO) 2.2 10^3/uL (0.5-4.7); ABSOLUTE MONOCYTES (AUTO) 0.4 10^3/uL (0.1-1.4); ABSOLUTE NEUT (AUTO) 5.2 10^3/uL (1.7-8.2); BASOPHILS % (AUTO) 0.3 % (0-2); EOSINOPHILS % (AUTO) 0.6 % (0-6); HEMATOCRIT 32.9 % (36.0-47.0); HEMOGLOBIN 10.9 g/dL (12.0-15.5); LYMPHOCYTES % (AUTO) 28.2 % (13-45); MEAN CORPUSCULAR HEMOGLOBIN 28.7 pg (27.0-33.4); MEAN CORPUSCULAR HGB CONC 33.3 g/dL (32.0-36.0); MEAN CORPUSCULAR VOLUME 86 fl (80-97); MONOCYTES % (AUTO) 5.1 % (3-13); PLATELET COUNT 227 10^3/uL (150-450); RED BLOOD COUNT 3.82 10^6/uL (3.72-5.28); RED CELL DISTRIBUTION WIDTH 14.2 % (11.5-14.0); SEGMENTED NEUTROPHILS % (AUTO) 65.8 % (42-78); TOTAL CELLS COUNTED % (AUTO) 100 %; WHITE BLOOD COUNT 7.8 10^3/uL (4.0-10.5)
[2017-09-09 14:26] LABS: ALANINE AMINOTRANSFERASE 91 U/L (9-52); ALBUMIN 3.5 g/dL (3.5-5.0); ALKALINE PHOSPHATASE 76 U/L (38-126); ANION GAP 9 (5-19); ASPARTATE AMINO TRANSFERASE 56 U/L (14-36); BILIRUBIN,DIRECT 0.1 mg/dL (0.0-0.4); BILIRUBIN,TOTAL 0.2 mg/dL (0.2-1.3); BLOOD UREA NITROGEN 7 mg/dL (7-20); CALCIUM 9.2 mg/dL (8.4-10.2); CARBON DIOXIDE 35 mmol/L (22-30); CHLORIDE 99 mmol/L (98-107); GLUCOSE 87 mg/dL (75-110); SODIUM 142.7 mmol/L (137-145)
[2017-09-09 14:28] LABS: POTASSIUM 2.4 mmol/L (3.6-5.0)
[2017-09-09] MEDS: POTASSI CL 20 MEQ/50 ML RIDER 20 MEQ/50 ML RTUPB IV SCH ×2 (15:20→16:56)
--- NOTE | 2017-09-09 15:25 | PDOC PROGRESS REPORT ---
Subjective Progress Note for:: 09/09/17 Subjective:: She has hypokalemia from today's blood work due to diarrhea Reason For Visit: DEHYDRATION, SYNCOPE Physical Exam Vital Signs: Temp Pulse Resp BP Pulse Ox 99.3 F 74 15 119/51 L 99 09/09/17 11:57 09/09/17 14:00 09/09/17 11:57 09/09/17 11:57 09/09/17 11:57 Intake & Output 09/08/17 09/09/17 09/10/17 06:59 06:59 06:59 Intake Total 2001 2156 118 Output Total 0 1 Balance 2001 2155 118 Weight 70.2 kg General appearance: PRESENT: no acute distress, well-developed, well-nourished Head exam: PRESENT: atraumatic, normocephalic Eye exam: PRESENT: conjunctiva pink, EOMI, PERRLA. ABSENT: scleral icterus Ear exam: PRESENT: normal external ear exam Mouth exam: PRESENT: moist, tongue midline Neck exam: PRESENT: full ROM Respiratory exam: PRESENT: clear to auscultation arcelia Cardiovascular exam: PRESENT: RRR, +S1, +S2 Pulses: PRESENT: normal dorsalis pedis pul, +2 pedal pulses bilateral Vascular exam: PRESENT: normal capillary refill GI/Abdominal exam: PRESENT: normal bowel sounds, soft Rectal exam: PRESENT: deferred Neurological exam: PRESENT: alert Psychiatric exam: PRESENT: appropriate affect, normal mood Skin exam: PRESENT: dry, intact, warm Results Laboratory Results: 09/09/17 13:56 09/09/17 13:56 09/09/17 09/09/17 13:56 13:56 WBC 7.8 RBC 3.82 Hgb 10.9 L Hct 32.9 L MCV 86 MCH 28.7 MCHC 33.3 RDW 14.2 H Plt Count 227 Seg Neutrophils % 65.8 Lymphocytes % 28.2 Monocytes % 5.1 Eosinophils % 0.6 Basophils % 0.3 Absolute Neutrophils 5.2 Absolute Lymphocytes 2.2 Absolute Monocytes 0.4 Absolute Eosinophils 0.0 Absolute Basophils 0.0 Sodium 142.7 Potassium 2.4 L* Chloride 99 Carbon Dioxide 35 H Anion Gap 9 BUN 7 Creatinine 0.68 Est GFR ( Amer) > 60 Est GFR (Non-Af Amer) > 60 Glucose 87 Calcium 9.2 Total Bilirubin 0.2 AST 56 H ALT 91 H Alkaline Phosphatase 76 Total Protein 6.0 L Albumin 3.5 09/06/17 09/06/17 09/06/17 07:36 07:36 13:55 Creatine Kinase 107 CK-MB (CK-2) 0.83 1.99 Troponin I < 0.012 < 0.012 09/06/17 09/06/17 09/06/17 13:55 18:44 18:44 Creatine Kinase 173 H 299 H CK-MB (CK-2) 3.29 Troponin I < 0.012 Impressions: Head CT 09/05/17 21:21 IMPRESSION: NORMAL BRAIN CT WITHOUT CONTRAST. EVIDENCE OF ACUTE STROKE: NO. Assessment & Plan - Diagnosis (1) Acute gastroenteritis Is this a current diagnosis for this admission?: Yes (2) Syncope and collapse Is this a current diagnosis for this admission?: Yes (3) Hypokalemia Is this a current diagnosis for this admission?: Yes Plan: Replace potassium
[2017-09-10] MEDS: LANSOPRAZOLE 30 MG TAB.RAP.DR PO SCH (05:35)
[2017-09-10 05:37] LABS: ALBUMIN 2.8 g/dL (3.5-5.0); ANION GAP 7 (5-19); ASPARTATE AMINO TRANSFERASE 34 U/L (14-36); BLOOD UREA NITROGEN 12 mg/dL (7-20); CALCIUM 8.7 mg/dL (8.4-10.2); CARBON DIOXIDE 34 mmol/L (22-30); CHLORIDE 100 mmol/L (98-107); GLUCOSE 97 mg/dL (75-110); SODIUM 141.1 mmol/L (137-145); TOTAL PROTEIN 5.1 g/dL (6.3-8.2)
[2017-09-10 05:38] LABS: ALANINE AMINOTRANSFERASE 72 U/L (9-52); ALKALINE PHOSPHATASE 73 U/L (38-126); BILIRUBIN,TOTAL 0.1 mg/dL (0.2-1.3)
[2017-09-10 05:44] LABS: POTASSIUM 2.6 mmol/L (3.6-5.0)
[2017-09-10] MEDS: POTASSIUM CHLORIDE 10 MEQ TABLET.SA PO SCH ×4 (06:52→18:06)
[2017-09-10] MEDS: OMEGA-3 ACID ETHYL ESTERS 1 GM CAPSULE PO SCH (09:12)
[2017-09-10] MEDS: MULTIVITAMIN TABLET PO SCH (09:12)
[2017-09-10] MEDS: RIFAXIMIN 550 MG TABLET PO SCH ×2 (09:12→17:20)
[2017-09-10] MEDS: VALSARTAN 160 MG TABLET PO SCH (09:13)
[2017-09-10] MEDS: CALCIUM CARBONATE 250 MG/VITAMIN D3 125 UNIT TABLET PO SCH (09:13)
[2017-09-10] MEDS: CYANOCOBALAMIN (VITAMIN B-12) 1,000 MCG TABLET PO SCH (09:14)
[2017-09-10] MEDS: ASPIRIN 81 MG TABLET, ENT COATED PO SCH (09:14)
[2017-09-10] MEDS: HYDROCHLOROTHIAZIDE 25 MG TABLET PO SCH (09:15)
[2017-09-10] MEDS: NORMAL SALINE 1000 ML 1,000 ML IV PRN (10:35)
[2017-09-10] MEDS: POTASSI CL 20 MEQ/50 ML RIDER 20 MEQ/50 ML RTUPB IV SCH ×2 (10:36→13:54)
--- NOTE | 2017-09-10 15:33 | PDOC PROGRESS REPORT ---
Subjective Progress Note for:: 09/10/17 Subjective:: She was seen by the bedside, she has hypokalemia, this is being replaced presently, the hyperkalemia is due to GI losses from diarrhea Reason For Visit: DEHYDRATION, SYNCOPE Physical Exam Vital Signs: Temp Pulse Resp BP Pulse Ox 97.9 F 79 16 122/51 L 95 09/10/17 08:03 09/10/17 14:00 09/10/17 08:03 09/10/17 08:03 09/10/17 08:03 Intake & Output 09/09/17 09/10/17 09/11/17 06:59 06:59 06:59 Intake Total 2157 2832 354 Output Total 1 Balance 2156 2832 354 Weight 70.2 kg 71.2 kg General appearance: PRESENT: no acute distress, well-developed, well-nourished Head exam: PRESENT: atraumatic, normocephalic Eye exam: PRESENT: conjunctiva pink, EOMI, PERRLA Ear exam: PRESENT: normal external ear exam Mouth exam: PRESENT: moist, tongue midline Neck exam: PRESENT: full ROM Respiratory exam: PRESENT: clear to auscultation arcelia Cardiovascular exam: PRESENT: RRR, +S1, +S2 Vascular exam: PRESENT: normal capillary refill GI/Abdominal exam: PRESENT: normal bowel sounds, soft Rectal exam: PRESENT: deferred Neurological exam: PRESENT: alert, awake, oriented to person, oriented to place , oriented to time, oriented to situation, CN II-XII grossly intact Psychiatric exam: PRESENT: appropriate affect, normal mood Skin exam: PRESENT: dry, intact, warm Results Laboratory Results: 09/09/17 13:56 09/10/17 04:05 09/10/17 04:05 Sodium 141.1 Potassium 2.6 L* Chloride 100 Carbon Dioxide 34 H Anion Gap 7 BUN 12 Creatinine 0.69 Est GFR ( Amer) > 60 Est GFR (Non-Af Amer) > 60 Glucose 97 Calcium 8.7 Total Bilirubin 0.1 L AST 34 ALT 72 H Alkaline Phosphatase 73 Total Protein 5.1 L Albumin 2.8 L 09/06/17 09/06/17 09/06/17 07:36 07:36 13:55 Creatine Kinase 107 CK-MB (CK-2) 0.83 1.99 Troponin I < 0.012 < 0.012 09/06/17 09/06/17 09/06/17 13:55 18:44 18:44 Creatine Kinase 173 H 299 H CK-MB (CK-2) 3.29 Troponin I < 0.012 Impressions: Head CT 09/05/17 21:21 IMPRESSION: NORMAL BRAIN CT WITHOUT CONTRAST. EVIDENCE OF ACUTE STROKE: NO. Assessment & Plan - Diagnosis (1) Acute gastroenteritis Is this a current diagnosis for this admission?: Yes (2) Syncope and collapse Is this a current diagnosis for this admission?: Yes (3) Hypokalemia Is this a current diagnosis for this admission?: Yes - Plan Summary Plan Summary: She will continue present treatment
[2017-09-10 18:13] LABS: ANION GAP 9 (5-19); BLOOD UREA NITROGEN 10 mg/dL (7-20); CALCIUM 9.1 mg/dL (8.4-10.2); CARBON DIOXIDE 33 mmol/L (22-30); CHLORIDE 101 mmol/L (98-107); GLUCOSE 100 mg/dL (75-110); POTASSIUM 3.5 mmol/L (3.6-5.0); SODIUM 143.1 mmol/L (137-145)
[2017-09-11] MEDS: LANSOPRAZOLE 30 MG TAB.RAP.DR PO SCH (05:28)
[2017-09-11 05:40] LABS: ANION GAP 8 (5-19); BLOOD UREA NITROGEN 14 mg/dL (7-20); CARBON DIOXIDE 32 mmol/L (22-30); CHLORIDE 103 mmol/L (98-107); GLUCOSE 99 mg/dL (75-110); POTASSIUM 3.8 mmol/L (3.6-5.0); SODIUM 142.5 mmol/L (137-145)
[2017-09-11] MEDS: CYANOCOBALAMIN (VITAMIN B-12) 1,000 MCG TABLET PO SCH (09:53)
[2017-09-11] MEDS: CALCIUM CARBONATE 250 MG/VITAMIN D3 125 UNIT TABLET PO SCH (09:56)
[2017-09-11] MEDS: OMEGA-3 ACID ETHYL ESTERS 1 GM CAPSULE PO SCH (09:56)
[2017-09-11] MEDS: HYDROCHLOROTHIAZIDE 25 MG TABLET PO SCH (09:57)
[2017-09-11] MEDS: ASPIRIN 81 MG TABLET, ENT COATED PO SCH (09:57)
[2017-09-11] MEDS: VALSARTAN 160 MG TABLET PO SCH (09:58)
[2017-09-11] MEDS: RIFAXIMIN 550 MG TABLET PO SCH ×2 (09:58→17:07)
[2017-09-11] MEDS: MULTIVITAMIN TABLET PO SCH (09:58)
[2017-09-11] MEDS: NORMAL SALINE 1000 ML 1,000 ML IV PRN (12:53)
[2017-09-11 15:41] LABS: ALANINE AMINOTRANSFERASE 64 U/L (9-52); ALBUMIN 3.2 g/dL (3.5-5.0); ALKALINE PHOSPHATASE 85 U/L (38-126); ANION GAP 5 (5-19); ASPARTATE AMINO TRANSFERASE 34 U/L (14-36); BLOOD UREA NITROGEN 13 mg/dL (7-20); CALCIUM 9.3 mg/dL (8.4-10.2); CARBON DIOXIDE 36 mmol/L (22-30); CHLORIDE 98 mmol/L (98-107); GLUCOSE 107 mg/dL (75-110); POTASSIUM 4.2 mmol/L (3.6-5.0); SODIUM 139.4 mmol/L (137-145); TOTAL PROTEIN 5.6 g/dL (6.3-8.2)
[2017-09-11 15:42] LABS: BILIRUBIN,TOTAL < 0.1 mg/dL (0.2-1.3)
[2017-09-11 18:38] VITALS: BP 120/50
--- NOTE | 2017-09-11 21:00 | PDOC DISCHARGE SUMMARY ---
General - Admit/Disc Date/PCP Admission Date/Primary Care Provider: 09/06/17 01:06 STEFFANY OKEEFE MD Discharge Date: 09/11/17 - Discharge Diagnosis (1) Acute gastroenteritis Is this a current diagnosis for this admission?: Yes (2) Syncope and collapse Is this a current diagnosis for this admission?: Yes (3) Hypokalemia Is this a current diagnosis for this admission?: Yes - Additional Information Discharge Diet: As Tolerated Discharge Activity: Activity As Tolerated, Balance Activity w/Rest Home Medications: Aspirin [Ecotrin 81 mg EC Tablet] 81 mg PO DAILY 09/06/17 Calcium Carb/D3/Magnesium/Zinc [Rei Mag Zinc-D3 Tablet] 1 tab PO DAILY 09/06/17 Cyanocobalamin (Vitamin B-12) [B-12] 500 mcg PO DAILY 09/06/17 Fish Oil/Dha/Epa [Fish Oil 1,200 mg Fish Oil] 1,200 mg PO DAILY 09/06/17 Multivit-Min/Iron/Folic/Lutein [Centrum Silver Women Tablet] 1 each PO DAILY 04/15 Omeprazole 40 mg PO DAILY 09/06/17 Valsartan/Hydrochlorothiazide [Diovan Hct 160-25 mg Tablet] 1 tab PO DAILY 09/06 History of Present Illness History of Present Illness: KEVEN CASTELAN is a 77 year old female,She has a history of hypertension, she had episode of profuse diarrhea with vomiting there was associated hypotension, she had episode of loss of consciousness, she came to the emergency room twice , initially she was seen for the acute diarrhea and vomiting, she returned again to the emergency room for evaluation of loss of consoiuoness and laceration of the forehead.The feces is negative for Clostridium difficile toxin, the last time she was in the emergency room which was <24 hours ago she was diagnosed with urinary tract infection. Hospital Course Hospital Course: She was admitted initially for observation due to severe gastroenteritis associated with volume loss. She was treated with IV fluids, she had ongoing diarrhea associated with loss of consciousness felt to be due to orthostasis, she was empirically treated with rifaximin, the stool culture was negative for Clostridium difficile toxin she had hypokalemia ,because of the prolonged diarrhea patient status was changed to inpatient. The diarrhea stopped in the last 24 hours and she was discharged home today. Physical Exam Vital Signs: Temp Pulse Resp BP Pulse Ox 98.9 F 76 14 120/50 L 99 09/11/17 18:37 09/11/17 18:37 09/11/17 18:37 09/11/17 18:37 09/11/17 18:37 Intake & Output 09/10/17 09/11/17 09/12/17 06:59 06:59 06:59 Intake Total 2832 3229 1748 Balance 2832 3229 1748 Weight 71.2 kg 72.8 kg General appearance: PRESENT: no acute distress, well-developed, well-nourished Head exam: PRESENT: atraumatic, normocephalic Eye exam: PRESENT: conjunctiva pink, EOMI, PERRLA Ear exam: PRESENT: normal external ear exam Mouth exam: PRESENT: moist, tongue midline Neck exam: PRESENT: full ROM Respiratory exam: PRESENT: chest wall tenderness Cardiovascular exam: PRESENT: RRR, +S1, +S2 Vascular exam: PRESENT: normal capillary refill GI/Abdominal exam: PRESENT: normal bowel sounds, soft Rectal exam: PRESENT: deferred Neurological exam: PRESENT: alert, awake, oriented to person, oriented to place , oriented to time, oriented to situation, CN II-XII grossly intact Psychiatric exam: PRESENT: appropriate affect, normal mood Skin exam: PRESENT: dry, intact, warm Results Laboratory Results: 09/09/17 13:56 09/11/17 15:15 09/11/17 09/11/17 04:03 15:15 Sodium 142.5 139.4 Potassium 3.8 4.2 Chloride 103 98 Carbon Dioxide 32 H 36 H Anion Gap 8 5 BUN 14 13 Creatinine 0.57 0.72 Est GFR ( Amer) > 60 > 60 Est GFR (Non-Af Amer) > 60 > 60 Glucose 99 107 Calcium 9.0 9.3 Total Bilirubin < 0.1 L AST 34 ALT 64 H Alkaline Phosphatase 85 Total Protein 5.6 L Albumin 3.2 L 09/06/17 09/06/17 09/06/17 07:36 07:36 13:55 Creatine Kinase 107 CK-MB (CK-2) 0.83 1.99 Troponin I < 0.012 < 0.012 09/06/17 09/06/17 09/06/17 13:55 18:44 18:44 Creatine Kinase 173 H 299 H CK-MB (CK-2) 3.29 Troponin I < 0.012 Impressions: Head CT 09/05/17 21:21 IMPRESSION: NORMAL BRAIN CT WITHOUT CONTRAST. EVIDENCE OF ACUTE STROKE: NO. Qualifiers - * PATEINT BEING DISCHARGED WITH ANY OF THE FOLLOWING DIAGNOSIS?: No
== END 2017-09-11 19:05 | disposition home or self-care (01) | DRG 392 ==
LOC: ER 20:58 → EH 09-06 01:06 → OBSVTOIN 09-06 01:06 → 3W 09-06 05:32
PROVIDERS: ADMIT Internal Medicine; ATTEND Internal Medicine
PROC: 0HQ1XZZ Repair Face Skin, External Approach (ICD-10-PCS; principal; 2017-09-06)
DX: K52.9 Noninfective gastroenteritis and colitis, unspecified (principal); N39.0 Urinary tract infection, site not specified; E86.0 Dehydration; E87.6 Hypokalemia; I10 Essential (primary) hypertension; E78.00 Pure hypercholesterolemia, unspecified; K21.9 Gastro-esophageal reflux disease without esophagitis; M19.90 Unspecified osteoarthritis, unspecified site; F32.9 Major depressive disorder, single episode, unspecified; I25.10 Atherosclerotic heart disease of native coronary artery without angina pectoris; S01.81XA Laceration without foreign body of other part of head, initial encounter; W18.09XA Striking against other object with subsequent fall, initial encounter; Y92.012 Bathroom of single-family (private) house as the place of occurrence of the external cause; Z79.899 Other long term (current) drug therapy; Z90.49 Acquired absence of other specified parts of digestive tract; Z90.710 Acquired absence of both cervix and uterus; Z79.82 Long term (current) use of aspirin
CPT/HCPCS: 36415; 70450; 80048; 80053; 81001; 82550; 82553; 84484; 85025; 87493; 93005; 93010; 96361; 96374; 99284; 99285; A9270-GY; G0378; J2405; J3480; J7030

== ENCOUNTER → 2017-09-27 | Outpatient (CLI) | payer MEDICARE, BC ==
[~2017-09-27] MED LIST: AMINOPHYLLINE INJ/PF 250 MG/10 ML SDV IV ONE; REGADENOSON INJ 0.4 MG/5 ML DISP.SYRIN IV ONE
--- NOTE | 2017-09-27 12:05 | DRAGON STRESS TEST REPORT ---
INTRAVENOUS LEXISCAN CARDIOLITE STRESS TEST USING SINGLE PHOTON EMMISION COMPUTERIZED TOMOGRAPHIC. DATE OF PROCEDURE: September 27, 2017, INDICATION : Abnormal EKG CARDIAC RISK FACTORS: Hypertension RESTING EKG: Sinus rhythm, nonprogression of R-wave V1 to V4 indicative of prior anteroseptal ID. STRESS EKG: No significant ST segment changes noted with LexiScan bolus REASON FOR TERMINATION: Protocol. PROCEDURE REPORT: Baseline heart rate 81 beats per minute with blood pressure of 127/60. Patient had no significant complaints. Patient was bolused with Lexiscan 0.4 mg intravenously followed by saline bolus. Heart rate at 2 minutes post bolus 117 with a blood pressure of 147/64. 3 minutes post bolus heart rate 104 with blood pressure of 148/64. No significant EKG changes were noted. Patient had no significant complaints during the procedure or postprocedure. Patient injected with Aminophyllin 75 mg at 3 minutes or later after Lexiscan bolus. CONCLUSIONS: Normal EKG and hemodynamic response to IV LexiScan. NUCLEAR DATA: At rest the patient was given 9.21 millicuries of technetium 99 sestamibi injected intravenously. As per protocol rest gated SPECT images were obtained. On day of stress test, the patient was given intravenous LexiScan at a dose of 0.4 mg in 5 mL intravenously, followed by flush with normal saline. Subsequently the stress dose of 32.3 millicuries of technetium 99 sestamibi was injected intravenously. As per protocol stress gated images were obtained. NUCLEAR INTERPRETATION: Both raw and processed data were used for interpretation. Visual, qualitative, computer-generated quantitative data was used. There was good myocardial uptake of technetium compound. Motion artifact and soft tissue attenuations were noted. Increased visceral uptake was noted. Mild decreased uptake was noted in the mid anterior wall in the stress imaging however this is felt to be differences in breast attenuation artifact. Also note wall motion abnormalities were noted on gated imaging therefore no definitive areas of transient perfusion defect noted. No definitive areas of fixed perfusion defect or scars noted. EKG gated imaging showed LV EF at 71 %, rest and stress gated EF similar visually. T. I D. ratio was 1.04. Lung heart ratio noted to be within normal limits 0.24. No significant extracardiac and abnormal radiotracer activities were noted. RV free wall uptake was noted to be WNL. IMPRESSION: Also refer to comments under nuclear interpretation. Also test results needs to be interpreted in the context of pretest probability. 1. No definitive areas of transient perfusion defect noted. 2. There is no definitive scintigraphic evidence of myocardial infarction/scar. 3. EKG gated imaging shows left ventricular ejection fraction of approx. 71 %. 4. Clinical correlation requested as occasionally single vessel disease or balanced ischemia could be missed. In approximately 10% of the cases Lexiscan may not cause adequate vasodilatory stress. RECOMMENDATIONS: Aggressive risk factor modification and medical management. Further evaluation may be needed if continued symptoms or other high risk indicators are noted on clinical evaluation. Close cardiology follow-up is also recommended. Clinical correlation with echocardiogram derived ejection fraction. Inability to exercise by itself can lead to increased cardiovascular event risks. Consider cardiology consultation and or follow-up if clinically indicated. I am available for cardiology evaluation and consultation if requested by the water truck driver, unless patient already has a mechanical maintenance supervisor. DIEGO
== END ==
LOC: RAD 06:41
PROVIDERS: ATTEND Internal Medicine
DX: R94.31 Abnormal electrocardiogram [ECG] [EKG] (principal)
CPT/HCPCS: 93017; 78452; A9500; J2785; J0280; Q9969

== ENCOUNTER → 2017-11-28 | Outpatient (CLI) | payer MEDICARE, BC ==
--- NOTE | 2017-11-28 13:57 | RADIOLOGY REPORT (SQ) ---
EXAM DESCRIPTION: HIP RIGHT AP/LATERAL COMPLETED DATE/TIME: 11/28/2017 1:43 pm REASON FOR STUDY: M16.11 UNILATERAL PRIMARY OSTEOARTHRITIS, RIGHT HIP COMPARISON: Right hip two views 07/09/2010 NUMBER OF VIEWS: Two views. TECHNIQUE: AP pelvis and additional frog-leg view of the right hip. LIMITATIONS: None. FINDINGS: MINERALIZATION: Osteopenic RIGHT HIP: No fracture or dislocation. Mild right hip joint space narrowing. No worrisome bone lesi ons. LEFT HIP: No fracture or dislocation. Mild left hip joint space narrowing. No worrisome bone lesion s. PUBIS AND ISCHIUM: No fracture. PELVIS: No fracture. SACRUM: No fracture or dislocation. No worrisome bone lesions. LOWER LUMBAR SPINE: Degenerative disc changes at L4-5 and L5-S1. SOFT TISSUES: No findings. OTHER: No other significant finding. IMPRESSION: Mild bilateral hip joint space narrowing. No bulky bony spurring. TECHNICAL DOCUMENTATION: JOB ID: [id number] [employer]- All Rights Reserved Reading location - IP/workstation name: [facility]END[email or web address]
== END ==
LOC: OD 13:12
PROVIDERS: ATTEND Internal Medicine
DX: M16.11 Unilateral primary osteoarthritis, right hip (principal)

== ENCOUNTER → 2018-10-29 | Outpatient (CLI) | payer MEDICARE, BC ==
--- NOTE | 2018-10-30 10:15 | XCELERA REPORT ---
[address] [facility] [address] Lower Extremity Venous Evaluation Procedure: Color flow and duplex imaging of the veins of the left lower extremity as well as the right Common Femoral vein. Right Sided Venous Evaluation The right common femoral vein is fully compressible. Spontaneous and phasic flow is present in the right common femoral vein. Left Sided Venous Evaluation Normal vessel filling wall to wall, compression and augmentation as well as Colour flow down to the infrageniculate veins. Interpretation Summary No duplex evidence of DVT or obstruction in the left lower extremity nor in the right Common Femoral vein. Name: KEVEN CASTELAN Age: 78 yrs Gender: Female : 1940 Patient Status: Outpatient Patient Location: Study Date: 10/29/2018 03:08 PM Reason For Study: LLE SWELLING Ordering Physician: STEFFANY OKEEFE Performed By: Lelo Aldridge : STEFFANY OKEEFE > Ramsey [place]
== END ==
LOC: SP 14:49
PROVIDERS: ATTEND Internal Medicine
DX: R22.42 Localized swelling, mass and lump, left lower limb (principal)
CPT/HCPCS: 93971

== ENCOUNTER → 2019-10-18 | Outpatient (CLI) | payer MEDICARE, BC ==
--- NOTE | 2019-10-18 14:56 | RADIOLOGY REPORT (SQ) ---
EXAM DESCRIPTION: CT SOFT TISSUE NECK WITH IMAGES COMPLETED DATE/TIME: 10/18/2019 2:34 pm REASON FOR STUDY: R22.1 LOCALIZED SWELLING, MASS AND LUMP, NECK R22.1 LOCALIZED SWELLING, MASS AND LUMP, NECK COMPARISON: None. TECHNIQUE: Post IV contrasted scanning from skull base through lung apices with review of bone, soft tissue and lung windows. Reconstructed coronal and sagittal MPR images reviewed. All images stored on PACS. All CT scanners at this facility use dose modulation, iterative reconstruction, and/or weight based d osing when appropriate to reduce radiation dose to as low as reasonably achievable (ALARA). [facility]: Dose Right [facility]: CareDose [facility]: Dose Right [facility]: Teradose 4D [facility]: Ziplocal CONTRAST TYPE AND DOSE: contrast/concentration: Isovue 350.00 mg/ml; Total Contrast Delivered: 75.0 ml; Total Saline Delivered: 55.0 ml RENAL FUNCTION: Creatinine 0.9 RADIATION DOSE: . LIMITATIONS: None. FINDINGS: SKULL BASE: Intact. MAJOR SALIVARY GLANDS: No solid or cystic masses. No inflammatory changes. LYMPHADENOPATHY: There is a necrotic lymph node accounting for the palpable abnormality. This measur es 1.2 cm in greatest diameter. This could be reactive or neoplastic. No other significant adenopat hy is identified. MUCOSAL MASSES OR ASYMMETRY: No mucosal masses or asymmetry. LARYNX/CORDS: No abnormal findings. VASCULAR STRUCTURES: The major vessels are patent. LUNG APICES: Clear. BONES: Intact. THYROID: Normal size. No masses. PARANASAL SINUSES: Clear. OTHER: No other significant finding. IMPRESSION: 1.2 cm necrotic lymph node in the left aspect of the neck. No other significant finding s. This could represent neoplastic or infectious process. TECHNICAL DOCUMENTATION: JOB ID: [id number] Quality ID # [id number]: Final reports with documentation of one or more dose reduction techniques (e.g., Au tomated exposure control, adjustment of the mA and/or kV according to patient size, use of iterative reconstruction technique) 2010 [employer]- All Rights Reserved Reading location - IP/workstation name: [email or web address]
== END ==
LOC: RAD 13:36
PROVIDERS: ATTEND Internal Medicine
DX: R22.1 Localized swelling, mass and lump, neck (principal)
CPT/HCPCS: 70491; 82565

== ENCOUNTER 2020-06-07 20:00 | Emergency (ER) | payer MEDICARE, BC ==
[2020-06-07 20:40] LABS: ABSOLUTE LYMPHOCYTES (AUTO) 1.5 10^3/uL (0.5-4.7); ABSOLUTE MONOCYTES (AUTO) 0.6 10^3/uL (0.1-1.4); ABSOLUTE NEUT (AUTO) 7.2 10^3/uL (1.7-8.2); BASOPHILS % (AUTO) 0.4 % (0-2); EOSINOPHILS % (AUTO) 0.4 % (0-6); HEMATOCRIT 32.1 % (36.0-47.0); HEMOGLOBIN 10.8 g/dL (12.0-15.5); LYMPHOCYTES % (AUTO) 16.5 % (13-45); MEAN CORPUSCULAR HEMOGLOBIN 28.6 pg (27.0-33.4); MEAN CORPUSCULAR HGB CONC 33.5 g/dL (32.0-36.0); MEAN CORPUSCULAR VOLUME 86 fl (80-97); MONOCYTES % (AUTO) 6.1 % (3-13); PLATELET COUNT 226 10^3/uL (150-450); RED BLOOD COUNT 3.76 10^6/uL (3.72-5.28); RED CELL DISTRIBUTION WIDTH 13.6 % (11.5-14.0); SEGMENTED NEUTROPHILS % (AUTO) 76.6 % (42-78); TOTAL CELLS COUNTED % (AUTO) 100 %; WHITE BLOOD COUNT 9.4 10^3/uL (4.0-10.5)
--- NOTE | 2020-06-07 20:44 | ER Document Report ---
ED GI/ - General Chief Complaint: Nausea/Vomiting Stated Complaint: NAUSEA VOMITING DIARRHEA Time Seen by Provider: 06/07/20 20:27 Primary Care Provider: STEFFANY OKEEFE MD [Primary Care Provider] - Follow up as needed Mode of Arrival: Ambulatory Information source: Patient Notes: This 80-year-old woman presents to the emergency department with a complaint of dizziness and lightness which occurred tonight. She stated she was in the bathroom on the commode having a bowel movement when she became very lightheaded and almost passed out. Her daughter who is visiting from [place] was at home with her noted the episode and called EMS. Apparently she became weak and her daughter was able to catch her and eased her to the floor. She has had a poor intake today and apparently her daughter brought her food which she ate and then promptly vomiting. TRAVEL OUTSIDE OF THE [place] IN LAST 30 DAYS: No - Related Data Allergies/Adverse Reactions: No Known Allergies Allergy (Verified 06/07/20 20:28) Past Medical History - Social History Smoking Status: Never Smoker Frequency of alcohol use: None Drug Abuse: None Family History: Reviewed & Not Pertinent Patient has homicidal ideation: No - Past Medical History Cardiac Medical History: Reports: Hx Coronary Artery Disease, Hx Hypercho lesterolemia, Hx Hypertension Denies: Hx Heart Attack Pulmonary Medical History: Denies: Hx Asthma, Hx Bronchitis, Hx COPD, Hx Pneumonia Neurological Medical History: Denies: Hx Cerebrovascular Accident, Hx Seizures Renal/ Medical History: Denies: Hx Peritoneal Dialysis GI Medical History: Reports: Hx Gastroesophageal Reflux Disease Musculoskeletal Medical History: Reports Hx Arthritis Psychiatric Medical History: Reports: Hx Depression Past Surgical History: Reports: Hx Cholecystectomy, Hx Hysterectomy. Denies: Hx Pacemaker - Immunizations Hx Diphtheria, Pertussis, Tetanus Vaccination: No Hx Pneumococcal Vaccination: 05/29/14 Review of Systems - Review of Systems Notes: Constitutional: Negative for fever. HENT: Negative for sore throat. Eyes: Negative for visual changes. Cardiovascular: Negative for chest pain. Respiratory: Negative for shortness of breath. Gastrointestinal: Negative for abdominal pain, vomiting or diarrhea. Genitourinary: Negative for dysuria. Musculoskeletal: Negative for back pain. Skin: Negative for rash. Neurological: See HPI 10 point ROS negative except as marked above and in HPI. Physical Exam - Vital signs Vitals: Pulse Ox 97 06/07/20 20:04 - Notes Notes: PHYSICAL EXAMINATION: Physical Exam: General: Well-nourished well-developed 80-year-old woman in no acute distress HEENT: NC/AT, pupils equal round and reactive to light, MM moist,nares clear, oropharynx clear, airway patent Neck: supple, no adenopathy, no masses. Good range of motion Lungs: clear, no wheezing, no rales no rhonchi CVS: Regular rate and rhythm no murmur gallop or rub Abdomen: Soft, active, nontender, no masses, no hepatosplenomegaly Ext: No edema, clubbing or cyanosis. Neuro: Alert and responsive, moving all 4 extremities on command, cranial nerves intact, no focal findings Skin: Intact no open lesions, no rash Course - Re-evaluation Re-evalutation: 06/08/20 00:34 80-year-old woman with a near syncopal episode presently feeling much better states she has had several episodes in the past. She was hospitalized your or your ago for similar episode according to the daughter she did well and was discharged home. She is doing better and states that she feels better. She has ambulated in the emergency department with no difficulties. Review of her labs are essentially negative. 06/08/20 00:47 Reviewed the patient labs also reveals that she has a urinary tract infection. She is given Rocephin 1 g in the emergency department. She has been discharged home with cefdinir 300 mg p.o. twice daily x7 days. Plan to the patient and her daughter that a repeat urinalysis after she has completed the medication would be important. Urine culture is being performed. - Vital Signs Vital signs: Temp Pulse Resp BP Pulse Ox 97.9 F 91 21 H 141/69 H 99 06/07/20 20:28 06/07/20 20:05 06/08/20 00:17 06/08/20 00:18 06/08/20 00:17 - Laboratory Results Result Diagrams: 06/07/20 20:12 06/07/20 20:12 Laboratory Results Interpreted: 06/07/20 06/07/20 06/07/20 20:12 20:12 20:27 Hgb 10.8 L Hct 32.1 L Est GFR ( Amer) 57 L Est GFR (MDRD) Non-Af 47 L Glucose 133 H Albumin 3.4 L Urine Protein 100 H Urine Ketones TRACE H Urine Blood LARGE H Urine Bilirubin SMALL H Urine Urobilinogen 4.0 H Ur Leukocyte Esterase LARGE H Urine Ascorbic Acid 40 H Critical Laboratory Results Reviewed: No Critical Results - Radiology Results Critical Radiology Results Reviewed: No Critical Results - EKG Interpretation by Me Rate: Normal - EKG interpreted by Dr. Junior: Normal sinus rhythm, rate 84, [place] interval 212 ms, 1st degree A-V block, QT interval 364 ms, LAD, probable left atrial abnormality, poor R wave progression, compared to EKG dated 09/05/2017, there are no significant interval changes. Interpretation: abnormal EKG Discharge - Discharge Clinical Impression: Dehydration, Syncope and collapse UTI (urinary tract infection) Qualifiers: Urinary tract infection type: site unspecified Hematuria presence: without hematuria Qualified Code(s): N39.0 - Urinary tract infection, site not specified Condition: Stable Disposition: HOME, SELF-CARE Instructions: Urinary Tract Infection ([facility]), Vasovagal Symptoms ([facility]) Additional Instructions: You were seen in the emergency department tonight with a episode of almost passing out. A review of your laboratory data reveals you have a urinary tract infection. Antibiotics were given in the emergency department and you are given a 7-day course of cefdinir for treatment. A follow-up urinalysis after you complete the antibiotics will be needed to document that the infection has cleared. If your symptoms are worsening or if you have other concerns you may return to the emergency department for further evaluation and treatment HOME CARE INSTRUCTIONS & INFORMATION: Thank you for choosing us for your medical needs. We hope you're satisfied with the care you received. After you leave, you must properly care for your problem and, at the same time, observe its progress. Any condition can change. Some illnesses can change rapidly over hours or days. If your condition worsens, return to the Emergency Department or see your physician promptly. ABOUT YOUR X-RAYS AND EKG'S: If you had an EKG or X-rays taken, they have been read by the Emergency Physician. The X-rays and EKG's will also be read by a Radiologist or Cable Armorer Operator within 24 hours. If discrepancies are noted, you will be notified by telephone. Please be certain the ED has a correct telephone number & address where you can be reached. Also, realize that some fractures or abnormalities do not show up on initial X-rays. If your symptoms continue, see your physician. ABOUT YOUR LABORATORY TEST: If you had laboratory tests, the results have been reviewed by the Emergency Physician. Some test results (for example cultures) may not be available for several days. You will be contacted if any test result shows you need additional treatment. Please be certain the ED has a correct telephone number and address where you can be reached. ABOUT YOUR MEDICATIONS: You will receive instructions on how to take your medicine on the prescription label you receive. Additional information may be provided by the Pharmacy. If you have questions afterwards, call the ED for clarification or further instructions. Some prescribed medications may cause drowsiness. Do not perform tasks such as driving a car or operating machinery without consulting your Pharmacist. If you feel you need a refill of pain medication, your condition will need re-evaluation. Please do not call for a refill of any medication. ABOUT YOUR SIGNATURE: Signature of this document acknowledges to followin. Understanding that you received emergency treatment and that you may be released before al medical problems are known or treated. Please be certain the ED has a correct phone number & address where you can be reached. 2. Acknowledgement that you will arrange for follow-up care as recommended. 3. Authorization for the Emergency Physician to provide information to your follow-up Physician in order to maximize your care. AT ANY TIME, IF YOUR SYMPTOMS CHANGE SIGNIFICANTLY OR WORSEN OR YOU DEVELOP NEW SYMPTOMS, RETURN TO THE EMERGENCY DEPARTMENT IMMEDIATELY FOR RE-EVALUATION. OUR GOAL IS TO PROVIDE EXCELLENT MEDICAL CARE! WE HOPE THAT WE HAVE MET YOUR EXPECTATIONS DURING YOUR EMERGENCY DEPARTMENT VISIT AND THAT YOU FEEL YOU HAVE RECEIVED EXCELLENT CARE! Prescriptions: Cefdinir 300 mg PO BID #14 capsule Referrals: STEFFANY OKEEFE MD [Primary Care Provider] - Follow up as needed
[2020-06-07 20:54] LABS: APPEARANCE,URINE CLOUDY; BILIRUBIN,URINE SMALL (NEGATIVE); COLOR,URINE AMBER; GLUCOSE, URINE NEGATIVE (NEGATIVE); KETONES,URINE TRACE mg/dL (NEGATIVE); LEUKOCYTE ESTERASE,URINE LARGE (NEGATIVE); NITRITE,URINE NEGATIVE (NEGATIVE); PROTEIN,URINE 100 mg/dL (NEGATIVE); URINE SPECIFIC GRAVITY 1.036
[2020-06-07 20:58] LABS: ALBUMIN 3.4 g/dL (3.5-5.0); ALKALINE PHOSPHATASE 97 U/L (38-126); ANION GAP 5 (5-19); ASPARTATE AMINO TRANSFERASE 29 U/L (14-36); BILIRUBIN,DIRECT 0.1 mg/dL (0.0-0.4); BILIRUBIN,TOTAL 0.4 mg/dL (0.2-1.3); BLOOD UREA NITROGEN 14 mg/dL (7-20); CALCIUM 8.7 mg/dL (8.4-10.2); CARBON DIOXIDE 30 mmol/L (22-30); CHLORIDE 102 mmol/L (98-107); GLUCOSE 133 mg/dL (75-110); POTASSIUM 3.6 mmol/L (3.6-5.0); TOTAL PROTEIN 6.3 g/dL (6.3-8.2)
--- NOTE | 2020-06-07 22:43 | EKG REPORT ---
SEVERITY:- ABNORMAL ECG - SINUS RHYTHM PROBABLE LEFT ATRIAL ABNORMALITY BORDERLINE LEFT AXIS DEVIATION ANTERIOR INFARCT, OLD : Confirmed by: Denton Nicole 07-Jun-2020 22:42:35
[2020-06-08] MEDS ORDERED: CEFTRIAXONE 1 GM/D5W RTU 1 GM/50 ML RTUPB IV ONE (00:45)
[2020-06-08 01:29] VITALS: BP 123/62
== END 2020-06-08 01:25 | disposition home or self-care (01) ==
LOC: ER 20:00
DX: E86.0 Dehydration (principal); N39.0 Urinary tract infection, site not specified; R55 Syncope and collapse; R11.2 Nausea with vomiting, unspecified; R19.7 Diarrhea, unspecified; R42 Dizziness and giddiness; I25.10 Atherosclerotic heart disease of native coronary artery without angina pectoris; E78.00 Pure hypercholesterolemia, unspecified; I10 Essential (primary) hypertension; Z90.49 Acquired absence of other specified parts of digestive tract; Z90.710 Acquired absence of both cervix and uterus
CPT/HCPCS: 93005; 99284; 96365; 36415; 85025; 80053; 81001; 93010; J0696